=== PATIENT | male | born 1965 | race Caucasian/White ===

== ENCOUNTER 2016-11-25 12:09 | Inpatient (IN) | payer BC, OTHER ==
[~2016-11-25] VITALS: Ht 172.7 cm; Wt 86.0 kg
[2016-11-25] MEDS ORDERED: SODIUM CHLORIDE FLUSH 10ML SYR IVF ONE (13:00)
[2016-11-25] MEDS ORDERED: ASPIRIN 81 MG TABLET CHEW PO ONE (13:00)
[2016-11-25 13:02] LABS: HEMOGLOBIN 16.5 g/dL (13.7-18.0)
[2016-11-25 13:17] LABS: BLOOD UREA NITROGEN 12 mg/dL (7-18)
[2016-11-25] MEDS ORDERED: ASPIRIN 81 MG TABLET CHEW ONE (14:51)
[2016-11-25] MEDS ORDERED: HEPARIN 5,000 UNITS/ML, 1ML IV PRN (15:00)
[2016-11-25] MEDS ORDERED: HEPARIN 5,000 UNITS/ML, 1ML IV ONE (15:00)
[2016-11-25] MEDS ORDERED: HEPARIN 25,000 UNITS/500ML PMX 500 ML IV PRN (15:00)
[2016-11-25] MEDS ORDERED: SODIUM CHLORIDE FLUSH 10ML SYR IVF PRN (15:30)
[2016-11-25] MEDS ORDERED: ACETAMINOPHEN 325 MG TABLET PO PRN (16:30)
[2016-11-25] MEDS ORDERED: POLYETHYLENE GLYCOL 17 GM PACKET PO PRN (16:30)
[2016-11-25] MEDS ORDERED: BISACODYL 10 MG SUPP PR PRN (16:30)
[2016-11-25] MEDS ORDERED: ONDANSETRON 2MG/ML, 2ML IVP PRN (16:30)
[2016-11-25] MEDS ORDERED: PROMETHAZINE 25 MG/ML, 1ML IM PRN (16:30)
[2016-11-25] MEDS: ENOXAPARIN 80 MG/0.8 ML SQ SCH (16:50)
[2016-11-25 17:14] LABS: IS PT STATUS REG ER OR PRE ER? NO
[2016-11-25 19:42] VITALS: BP 134/85
[2016-11-25] MEDS: LORATADINE 10 MG TABLET PO PRN (23:12)
[2016-11-25 23:30] LABS: IS PT STATUS REG ER OR PRE ER? NO
[2016-11-26 01:42] VITALS: BP 148/97
[2016-11-26] MEDS: HYDROcodone/APAP 5/325 TABLET PO PRN ×5 (01:46→23:36)
[2016-11-26] MEDS: FLUTICASONE NASAL SPRAY 16GM NAS SCH ×3 (02:03→21:24)
[2016-11-26] MEDS: ENOXAPARIN 80 MG/0.8 ML SQ SCH ×2 (05:47→16:39)
[2016-11-26 05:54] LABS: HEMOGLOBIN 15.6 g/dL (13.7-18.0)
[2016-11-26 06:43] LABS: ASPARTATE AMINO TRANSFERASE 15 U/L (15-37); BLOOD UREA NITROGEN 12 mg/dL (7-18)
[2016-11-26 06:44] VITALS: BP 132/88
[2016-11-26 13:41] VITALS: BP 119/81
[2016-11-26] MEDS ORDERED: WARFARIN 7.5 MG TABLET PO-COUM ONE ×2 (18:00→20:00)
[2016-11-26 19:38] VITALS: BP 144/89
[2016-11-26] MEDS: WARFARIN MODERAT DOSE PROTOCOL XX SCH (19:47)
[2016-11-26] MEDS: LORATADINE 10 MG TABLET PO PRN (21:24)
[2016-11-27 05:05] VITALS: BP 121/82
[2016-11-27] MEDS: ENOXAPARIN 80 MG/0.8 ML SQ SCH (05:15)
[2016-11-27 05:34] LABS: HEMOGLOBIN 15.4 g/dL (13.7-18.0)
[2016-11-27 05:49] LABS: BLOOD UREA NITROGEN 13 mg/dL (7-18)
[2016-11-27 06:34] VITALS: BP 118/82
[2016-11-27] MEDS: FLUTICASONE NASAL SPRAY 16GM NAS SCH (08:43)
[2016-11-27] MEDS: WARFARIN MODERAT DOSE PROTOCOL XX SCH (12:00)
[2016-11-27 13:04] VITALS: BP 115/82
[2016-11-27] MEDS ORDERED: WARF4TAB PO (15:55)
[2016-11-27] MEDS ORDERED: ENOX80SY4 SQ (15:55)
[2016-11-27] MEDS ORDERED: WARFARIN 7.5 MG TABLET PO-COUM ONE (18:00)
[2016-11-28 18:06] LABS: ANTITHROMBIN III ACTIVITY 106 % (75-135)
== END 2016-11-27 17:15 | disposition home or self-care (01) | DRG 299 ==
LOC: ED 14:41 → 4EST 15:24 → SUATTDRO 15:38 → DCLOUNGE 11-27 16:57
PROVIDERS: ADMIT Internal Medicine; ATTEND Internal Medicine
DX: I82.442 Acute embolism and thrombosis of left tibial vein (principal); I26.99 Other pulmonary embolism without acute cor pulmonale; G43.909 Migraine, unspecified, not intractable, without status migrainosus; I48.91 Unspecified atrial fibrillation; K21.9 Gastro-esophageal reflux disease without esophagitis; I48.0 Paroxysmal atrial fibrillation; J30.2 Other seasonal allergic rhinitis; Z80.0 Family history of malignant neoplasm of digestive organs; Z82.49 Family history of ischemic heart disease and other diseases of the circulatory system; Z83.3 Family history of diabetes mellitus; Z90.49 Acquired absence of other specified parts of digestive tract
CPT/HCPCS: 36415; 71020; 71275; 80048; 80053; 81241; 82040; 82962; 83090; 83880; 84484; 85025; 85210; 85300; 85301; 85303; 85306; 85520; 85610; 85730; 86147; 93005; 93306; 99285; J1650

== ENCOUNTER → 2017-03-24 | Outpatient (CLI) | payer OTHER ==
[~2017-03-24] MED LIST: ENOX80SY4 SQ; WARF4TAB PO
== END | disposition home or self-care (01) ==
LOC: CFH 12:27
PROVIDERS: ATTEND Internal Medicine Cardiovascular Disease
DX: I08.1 Rheumatic disorders of both mitral and tricuspid valves (principal); Z85.828 Personal history of other malignant neoplasm of skin; Z86.718 Personal history of other venous thrombosis and embolism
CPT/HCPCS: 93306